=== PATIENT | female | born 1970 | race Hispanic/Latino ===

== ENCOUNTER 2017-07-24 16:03 | Observation (INO) | payer OTHER ==
[2017-07-22 10:56] LABS: Basophils # (Auto) 0.2 K/mm3 (0.0-0.1); Basophils % (Auto) 2.7 % (0.0-1.8); Eosinophils # (Auto) 0.1 K/mm3 (0.0-0.4); Eosinophils % (Auto) 1.7 % (0.0-4.3); Hematocrit 39.1 % (30.3-42.9); Hemoglobin 13.2 gm/dl (10.1-14.3); Lymphocytes # (Auto) 2.4 K/mm3 (1.2-5.4); Lymphocytes % (Auto) 32.2 % (13.4-35.0); Mean Corpuscular HGB Conc 34 % (30-34); Mean Corpuscular Hemoglobin 29 pg (28-32); Mean Corpuscular Volume 85 fl (79-97); Monocytes # (Auto) 0.5 K/mm3 (0.0-0.8); Monocytes % (Auto) 6.6 % (0.0-7.3); Platelet Count 203 K/mm3 (140-440); Red Blood Count 4.59 M/mm3 (3.65-5.03); Red Cell Distribution Width 14.2 % (13.2-15.2)
--- NOTE | 2017-07-22 11:06 | Anesthesia Consultation ---
Anesthesia Consult and Med Hx Date of service: 07/22/17 - Airway Anesthetic Teeth Evaluation: Good ROM Head & Neck: Adequate Mental/Hyoid Distance: Adequate Mallampati Class: Class II Intubation Access Assessment: Probably Good - Pulmonary Exam CTA: Yes - Cardiac Exam Cardiac Exam: RRR - Pre-Operative Health Status ASA Pre-Surgery Classification: ASA2 Proposed Anesthetic Plan: General Nerve Block: TAP - Pulmonary Hx Smoking: Yes (former) - Cardiovascular System Hx Hypertension: Yes (x 10 yrs) - Central Nervous System Hx Psychiatric Problems: No - Hematic Hx Anemia: Yes - Other Systems Hx Alcohol Use: Yes (occas) Hx Cancer: No - Additional Comments Anesthesia Medical History Comments: Informed consent obtained
[2017-07-22 11:08] LABS: BUN/Creatinine Ratio 18; Blood Urea Nitrogen 11 mg/dL (7-17); Calcium 9.3 mg/dL (8.4-10.2); Hemolysis Index 13
--- NOTE | 2017-07-23 14:56 | History and Physical Report ---
History of Present Illness Date of examination: 07/22/17 Date of admission: 07/24/2017 Chief complaint: dysfunctional uterine bleeding History of present illness: 47y/o with dysfunctional uterine bleeding. She has episodes of flooding and clots. She has had saturation of clothes while on her menses. Often times she passes clots. Her pelvic pain during her menses is worsening. She does experience intermenstrual bleeding. Past History Past Medical History: hypertension, other (endometriosis) Past Surgical History: section, D&C, other (laparoscopy and left salpingectomy) Social history: - Obstetrical History : 6 Para: 5 Hx # Term Pregnancies: 5 Number of Pregnancies: 0 Spontaneous Abortions: 1 Induced : 0 Number of Living Children: 5 Medications and Allergies Allergies Allergy/AdvReac Type Severity Reaction Status Date / Time latex Allergy Hives Verified 07/17/17 18:02 Review of Systems All systems: negative Genitourinary: vaginal bleeding, pelvic pain - Vital Signs Vital signs: Vital Signs Temp Pulse Resp BP 98.2 F 66 18 136/90 07/22/17 10:30 07/22/17 10:30 07/22/17 10:30 07/22/17 10:30 Temp Pulse Resp BP Pulse Ox 98.2 F 66 18 136/90 07/22/17 10:30 07/22/17 10:30 07/22/17 10:30 07/22/17 10:30 - Physical Exam Breasts: Positive: deferred Cardiovascular: Regular rate Lungs: Positive: Clear to auscultation Abdomen: Positive: normal appearance Results Result Diagrams: 07/22/17 10:40 07/22/17 10:40 All other labs normal. Assessment and Plan - Patient Problems (1) Dysfunctional uterine bleeding Status: Acute Plan to address problem: scheduled for a robotic hysterectomy/BSO (2) Dysmenorrhea Status: Acute
--- NOTE | 2017-07-24 14:53 | Post Anesthesia Evaluation ---
- Post Anesthesia Evaluation Patient Participated: Yes Airway Patent: Yes Stable Respiratory Function: Yes Nausea/Vomiting: No Temp > 96.8F: Yes Pain Manageable: Yes Adequeate Hydration: Yes Anesthesia Complications: No
--- NOTE | 2017-07-24 14:54 | Operative Report ---
Operative Report Operative Report: Date of surgery: 07/24/2017 Preoperative diagnoses: Dysfunctional uterine bleeding; dysmenorrhea Postoperative diagnoses: Same as above Procedure: Robotic hysterectomy and bilateral salpingo-oophorectomy; lysis of adhesions Surgeon: Diana Ramirez M.D. Embossing Machine Operator Helper: Irving Riojas Anesthesia: Gen. endotracheal anesthesia Estimated blood loss: 100 mL Pathology: Uterus, cervix, bilateral ovaries and right fallopian tube. The patient has a history of a left salpingectomy Indication: 47-year-old 015 with a history of dysfunctional uterine bleeding and dysmenorrhea. The patient to fill medical management and elected to undergo definitive surgical management. Procedure: The patient was taken to the operating room and given general endotracheal anesthesia without complication. She is prepped and draped in a normal sterile fashion. A bivalve speculum was placed in the patient's vagina and a single- tooth tenaculum placed on the anterior lip of the cervix. The uterus was sounded with the uterine sound. A [employer] uterine manipulator was placed in the bivalve speculum was then removed. Attention was then turned to the patient's abdomen where a 12 millimeter supra umbilical skin incision was then made. A Veress needle was placed and peritoneal entry was verified water-filled syringe. Insufflation of the peritoneal cavity was performed with CO2 gas. The 12 mm trocar was then placed under direct visualization. An additional 8 mm trocar was placed on the patient's left and right lateral side just opposite of the supraumbilical trocar. An additional 5 mm right lateral trocar was then placed as the accessory port. The Maurizio Sandoval device was used to close the fascia of the 12 mm incision. The patient was then placed in steep Trendelenburg. General survey of the patient's abdomen and pelvis revealed the right adnexa was densely adherent to the right pelvic sidewall. There were omental adhesions to the right adnexa. The left fallopian tube was surgically absent. The da Winnie robot was then engaged. A fenestrated forcep was placed in arm 2 and a vessel sealer was placed in arm 1. The surgeon then transferred to the surgical console. The infundibulopelvic ligament was then isolated on the right. Lysis of adhesions had to be performed in order to release the right adnexa from the right pelvic sidewall. The vessel sealer was used to coagulate the ligament which was then transected. The tube and ovary were transected from the blood supply. The round ligament was then coagulated and transected also. The vesicouterine peritoneum was then entered from the patient 's right side. The uterine vessels were then coagulated with the vessel sealer. The vessels were then transected . Attention was then turned to the patient's left side where the infundibulopelvic ligament was again isolated coagulated and transected. The vesical peritoneum was then entered from the left and joined in the midline. Peritoneum was reflected off of the lower uterine segment. Uterine vessels were then coagulated and then transected. The blood supply to the uterus was adequately contained, a posterior colpotomy was made. The V care ring was visualized. Posterior colpotomy was created with the monopolar scissors. The incision was continued circumferentially until anterior colpotomy was made. The cervix and uterus were amputated from the vaginal cuff. The uterus was then removed along with the tubes and ovaries bilaterally through the vagina and a warm laparotomy sponge was placed and maintain the pneumoperitoneum. The vaginal cuff was then closed in a running fashion with V lock suture. Irrigation of the pelvis was performed. Gelfoam with thrombin was applied to the incision. The skin was then reapproximated with 4-0 Monocryl. The tissue was sent to pathology which included the cervix, uterus, tubes and ovaries. The patient was then successfully extubated. She was then taken to the recovery room in stable condition. All sponge laps and needle counts were correct x2.
[~2017-07-24 16:03] MED LIST: ANCEF ONE; ANCEF/STERILE WATER 2 GM/20 ML 2 GM/20 ML SYRINGE IV SCH; DECADRON IV ONE; DIPRIVAN 10 MG/ML IV ONE; GELFOAM POWDER 1GM MM ONE; LACTATED RINGERS 1,000 ML IV SCH; LACTATED RINGERS 1,000 ML ONE; MARCAINE 0.5% INFILTRATI NR; MILK OF MAGNESIA PO PRN; MORPHINE PCA 30MG/30ML IV SCH; MOTRIN PO PRN; NACL 0.9% IR ONE; NARCAN 0.4 MG/1 ML IV PRN; NEOSPORIN GU IR ONE; NEOSTIGMINE ONE; NEURONTIN PO NR; PEPCID PO NR; PERCOCET 5/325 PO PRN; QUELICIN ONE; REGLAN ONE; ROBINUL ONE; SUBLIMAZE IV ONE; SUBLIMAZE ONE; THROMBIN (BOVINE) TP ONE; TYLENOL PO PRN; VERSED IV NR; XYLOCAINE MPF 2% ONE; ZEMURON IV ONE; ZOFRAN IV PRN; ZOFRAN ONE; ePHEDrine SULFATE ONE
[2017-07-24] MEDS: TORADOL IV SCH (21:22)
[2017-07-24] MEDS: D5LR 1,000 ML IV SCH (21:26)
[2017-07-25] MEDS: TORADOL IV SCH ×2 (03:12→10:31)
[2017-07-25] MEDS: D5LR 1,000 ML IV SCH (03:55)
[2017-07-25 05:44] LABS: Hematocrit 35.8 % (30.3-42.9); Hemoglobin 12.1 gm/dl (10.1-14.3)
--- NOTE | 2017-07-25 08:48 | Progress Note ---
Assessment and Plan - Patient Problems (1) Dysfunctional uterine bleeding Current Visit: No Status: Acute Plan to address problem: patient doing well discharge home (2) Dysmenorrhea Current Visit: No Status: Acute Subjective - Subjective Date of service: 07/25/17 Interval history: Patient without complaints. Tolerating regular diet. Patient has voided. Patient reports: appetite normal, voiding normally, pain well controlled Objective - Vital Signs Latest vital signs: Vital Signs Temp Pulse Resp BP BP Pulse Ox 07/25/17 04:00 98.6 F 77 16 114/69 07/25/17 03:42 20 07/25/17 03:12 22 07/25/17 00:00 98.6 F 87 18 113/66 07/24/17 21:52 18 07/24/17 21:22 20 07/24/17 19:30 98.6 F 81 16 101/75 07/24/17 16:40 97.4 F L 86 12 153/84 153/84 98 07/24/17 16:15 97.4 F L 82 13 129/81 99 07/24/17 16:00 72 11 L 132/75 100 07/24/17 15:45 72 10 L 122/74 100 07/24/17 15:30 75 10 L 129/75 100 07/24/17 15:25 77 14 133/74 100 07/24/17 15:20 80 13 130/78 100 07/24/17 15:15 86 13 132/75 100 07/24/17 15:11 97.8 F 82 18 128/75 100 07/24/17 13:05 70 16 144/85 100 07/24/17 13:00 65 20 152/90 100 07/24/17 12:55 71 16 166/92 100 07/24/17 12:50 78 14 173/97 100 07/24/17 12:25 98.2 F 74 16 150/97 99 07/24/17 11:35 98.2 F 74 16 150/97 99 Intake and Output 07/24/17 07/25/17 07/25/17 22:59 06:59 14:59 Intake Total 615 810.417 Output Total 950 1500 Balance -558 -077.793 Intake: IV 375 810.417 D5lr 1,000 ml @ 125 mls/ 810.417 hr IV DIRECT YUMIKO Rx#: [id number] Right Hand 125 Oral 240 Output: Urine 950 1500 Indwelling Catheter 1500 Void 600 Other: Total, Intake Amount 240 Total, Output Amount 600 400 Voiding Method Indwelling Catheter - Exam Abdomen: Present: normal appearance, soft
--- NOTE | 2017-07-25 08:51 | Discharge Summary ---
Providers - Providers Date of Admission: 07/24/17 16:04 Date of discharge: 07/25/17 Attending physician: ASHLEE FREDERICK Primary care physician: MARI BAJWA Hospitalization Reason for admission: other (DUB) Procedure: other (robotic hysterectomy/BSO) Incision: normal Discharge diagnosis: other (DUB) Pertinent studies: Patient was admitted the day of surgery and underwent a robotic hysterectomy. see op note. Postoperative course uncomplicated Condition at discharge: Good Disposition: DC-01 TO HOME OR SELFCARE - Discharge Diagnoses (1) Dysfunctional uterine bleeding Status: Acute (2) Dysmenorrhea Status: Acute Plan - Discharge Medications Prescriptions: Ibuprofen [Motrin] 800 mg PO Q8HR PRN #60 tablet PRN Reason: Pain Oxycodone HCl/Acetaminophen [Percocet 7.5/325 mg] 1 each PO Q6HR PRN #45 tablet PRN Reason: Pain - Provider Discharge Summary Activity: no sex for 6 weeks, no heavy lifting 4 weeks, no strenuous exercise Diet: routine Instructions: routine Additional instructions: [] Smoking cessation referral if applicable(refer to patient education folder for contact #) [] Refer to [facility] Booklet Call your doctor immediately for: * Fever > 100.5 * Heavy vaginal bleeding ( >1 pad per hour) * Severe persistent headache * Shortness of breath * Reddened, hot, painful area to leg or breast * Drainage or odor from incision. * Keep incision clean and dry at all times and follow doctor's instructions regarding bathing/showering schedule followup in 4 weeks - Follow up plan
[2017-07-25 15:43] VITALS: BP 112/63
== END 2017-07-25 13:12 | disposition home or self-care (01) ==
LOC: OR 16:03 → OB 16:04
PROVIDERS: ADMIT Obstetrics & Gynecology; ATTEND Obstetrics & Gynecology
DX: N93.8 Other specified abnormal uterine and vaginal bleeding (principal); N94.6 Dysmenorrhea, unspecified; I10 Essential (primary) hypertension; Z87.891 Personal history of nicotine dependence
CPT/HCPCS: 36415; 58552; 64450; 80048; 84703; 85014; 85018; 85025; 86850; 86900; 86901; 88307; 96374; 96375; 96376; A4217; A4649; G0378; J0330; J0690; J1100; J1885; J2250; J2270; J2405; J2704; J2710; J2765; J3010; J7120; J7121; S2900

== ENCOUNTER 2017-11-08 06:11 | Outpatient (CLI) | payer OTHER ==
--- NOTE | 2017-11-08 13:17 | Cat Scan Report ---
FINAL REPORT EXAM: CT ABDOMEN PELVIS WO CON HISTORY: ABD PAIN, VENTRAL HERNIA WITHOUT OBSTRUCTION TECHNIQUE: Axial noncontrast images were performed from the lung bases to the pubic symphysis. Enteric contrast was administered. Multiplanar reformats are performed on the acquisition scanner. Total exam DLP 853.07 mGy-cm Comparison: None FINDINGS: There is mild basal atelectasis. The liver is diffusely hypodense compatible with fatty infiltration with peripheral sparing in the posterior right lobe in a segmental/wedge distribution. Unremarkable unenhanced spleen, pancreas, moderately distended gallbladder, bilateral adrenal glands and bilateral kidneys. Stomach is moderately distended with enteric contrast. There is enteric contrast in the small bowel and colon without evidence for obstruction. There are small pericecal lymph nodes. The appendix is not identified. There contrast to the level of the rectum. There is rectosigmoid diverticulosis without evidence for inflammation. There is diastasis or laxity of the anterior abdominal wall the level of the umbilicus without a true hernia identified. Aorta is minimally atherosclerotic. No regional adenopathy. No free air or free fluid. Surgically absent uterus. Minimally distended urinary bladder. No significant scoliosis. IMPRESSION: Diffusely fatty infiltrated liver with probable focal sparing in the posterior segment right lobe subcapsular location. Study is performed without IV contrast which limits assessment. Recommend correlation with follow-up ultrasound. Rectosigmoid diverticulosis without diverticulitis. Anterior abdominal wall laxity/mild diastasis in the periumbilical region without a true hernia. No bowel obstruction. No other etiology for abdominal pain identified. Surgically absent uterus.
== END 2017-11-08 06:12 | disposition home or self-care (01) ==
LOC: CT 06:11
PROVIDERS: ATTEND Surgery
DX: K43.9 Ventral hernia without obstruction or gangrene (principal); K57.30 Diverticulosis of large intestine without perforation or abscess without bleeding; I70.0 Atherosclerosis of aorta; I10 Essential (primary) hypertension; K21.9 Gastro-esophageal reflux disease without esophagitis; D64.9 Anemia, unspecified; Z87.891 Personal history of nicotine dependence
CPT/HCPCS: 74176